=== PATIENT | female | born 1975 | race Caucasian/White ===

== ENCOUNTER 2016-05-30 12:03 | Emergency (ER) | payer OTHER ==
--- NOTE | 2016-05-30 12:13 | EDPHY ---
H & P Time Seen by Provider: 05/30/16 12:09 HPI/ROS: CHIEF COMPLAINT: Anaphylaxis, difficulty breathing. HISTORY OF PRESENT ILLNESS: The patient is a 40-year-old female with a severe coconut allergy and asthma presenting with an acute allergic reaction that began 40 minutes ago after accidental coconut ingestion. She is complaining of difficulty breathing and throat swelling. This is similar to her previous reactions. She self-administered .3ml IM Epinephrine IM. She is having difficulty speaking due to the throat swelling. She has been intubated before for allergic reactions. She denies vomiting, diarrhea, or other complaints. REVIEW OF SYSTEMS: A complete 10-point review of systems was performed and is negative except for those items mentioned in the HPI. Past Medical/Surgical History: Asthma, severe anaphylactic reactions. Social History: Nonsmoker. Smoking Status: Never smoked Physical Exam: General Appearance: Alert, in respiratory distress, hoarse voice Eyes: Pupils equal and round, no periorbital swelling ENT, Mouth: Mucous membranes moist, no oral swelling Neck: Normal inspection, no stridor Respiratory: Tachypnea Decreased air exchange throughout Cardiovascular: Regular tachycardia Neurological: A&O, nonfocal exam Skin: Erythema on the anterior chest wall Extremities: No swelling Psychiatric: calm, mood normal Constitutional: Initial Vital Signs O2 Sat (%) 99 05/30/16 12:10 O2 Delivery Mode Room Air O2 (L/minute) 3 Allergies/Adverse Reactions: droperidol [From Inapsine] Allergy (Severe, Verified 05/30/16 12:22) Cephalosporins Allergy (Verified 05/30/16 12:22) coconut oil Allergy (Verified 05/30/16 12:22) latex [Latex] Allergy (Verified 05/30/16 12:22) Penicillins Allergy (Verified 05/30/16 12:22) Home Medications: Medication Instructions Recorded ALBUTEROL SULFATE 09/26/10 ARIPIPRAZOLE [Abilify 30mg] mg PO DAILY 09/26/10 BENZTROPINE MESYLATE mg PO 09/26/10 Mometasone/Formoterol [Dulera 100 13 gm IH 09/26/10 Mcg/5 Mcg Inhaler] Ciprofloxacin 08/09/15 Pradaxa 08/09/15 traZODONE 08/10/15 Azithromycin [Zithromax] 250 mg PO DAILY #6 tab 03/24/16 predniSONE 1 tab PO DAILY #15 tab 03/24/16 predniSONE 40 mg PO DAILY #8 tab 05/30/16 Medical Decision Making ED Course/Re-evaluation: I saw this patient on her arrival. She was in severe respiratory distress with laryngeal edema and bronchospasm. A 2nd dose of epinephrine 0.3 mL IM given. After my initial examination the patient was moved into room 2 and on-call anesthesia was paged for anticipated difficult airway. An IV was established. 125mg IV Solu-Medrol, 25mg IV Benadryl administered. 3ml IH Albuterol administered. I stayed at the pt's bedside until she felt like she was improving. 1220: Consulted with Dr. Morris, anesthesia, for possible airway assistance. 1230: Reassessed patient. She is feeling much better. She is breathing easier and is able to speak more clearly. On exam she has decreased breath sounds throughout with scattered expiratory wheezes. A 2nd albuterol neb was given. 1430: Reassessed patient. She is completely symptom-free at this time. Chest is clear to auscultation. She does not need a refill of her Epi pens as she tells me she has plenty. She would like to go home. I answered all of her questions. She was given return precautions and prescriptions prior to being discharged. This patient utilized 35 minutes of critical care time exclusive of unbundled procedures. Differential Diagnosis: Differential diagnosis includes though it is not limited to laryngeal edema, bronchospasm, hypotension, angioedema. - Data Points Medications Given: Discontinued Medications Albuterol (Proventil Neb) 3 ml IH EDNOW ONE Stop: 05/30/16 12:15 Last Admin: 05/30/16 12:30 Dose: 3 ml Albuterol (Proventil Neb) 3 ml IH EDNOW ONE Stop: 05/30/16 12:24 Last Admin: 05/30/16 12:31 Dose: 3 ml Diphenhydramine HCl (Benadryl Injection) 25 mg IVP EDNOW ONE Stop: 05/30/16 12:15 Last Admin: 05/30/16 12:32 Dose: 25 mg Epinephrine HCl (Epinephrine) 0.3 mg IM EDNOW ONE Stop: 05/30/16 12:24 Last Admin: 05/30/16 12:20 Dose: 0.3 mg Sodium Chloride (Ns) 1,000 mls @ 0 mls/hr IV ONCE ONE PRN Reason: Wide Open Stop: 05/30/16 12:23 Last Admin: 05/30/16 12:32 Dose: Not Given Sodium Chloride (Ns) 1,000 mls @ 3,000 mls/hr IV ONCE ONE Stop: 05/30/16 12:42 Last Admin: 05/30/16 12:32 Dose: 1,000 mls Methylprednisolone Sodium Succinate (Solu-Medrol) 125 mg IVP EDNOW ONE Stop: 05/30/16 12:15 Last Admin: 05/30/16 12:32 Dose: 125 mg Ranitidine HCl (Zantac) 50 mg IVP EDNOW ONE Stop: 05/30/16 12:24 Last Admin: 05/30/16 12:32 Dose: 50 mg Departure - Departure Disposition: Home, Routine, Self-Care Clinical Impression: Anaphylaxis Qualifiers: Qualifier Code: (T78.2XXA) Anaphylactic shock, unspecified, initial encounter Condition: Good Instructions: Anaphylaxis (ED) Additional Instructions: Take Claritin in the morning and Benadryl at night for the next 3 days. Additionally, take prednisone as instructed. Return to the emergency department if you experience serious worsening of condition. Referrals: Patient,NotPresent [Unknown] - As per Instructions Prescriptions: predniSONE 40 mg PO DAILY #8 tab Report Scribed for: Racquel Roblero Report Scribed by: Travon Davis Date of Report: 05/30/16 Time of Report: 12:13 Physician Review and Approval Statement: 05/30/16 12:14 Portions of this note were transcribed by a director of medical staff services. I personally performed a history, physical exam, medical decision making, and confirmed accuracy of information the transcribed note.
[2016-05-30] MEDS ORDERED: methylPREDNISolone SOD SUCC 125 MG/2 ML VIAL IVP ONE (12:14)
[2016-05-30] MEDS ORDERED: ALBUTEROL 3 ML DEYVIAL IH ONE ×2 (12:14→12:23)
[2016-05-30] MEDS ORDERED: NS 1,000 ML IV ONE ×2 (12:22→12:23)
[2016-05-30] MEDS ORDERED: RANITIDINE 50 MG/2 ML VIAL IVP ONE (12:23)
[2016-05-30 12:28] VITALS: TEMP 97.9
[2016-05-30 14:47] VITALS: BP 106/71; PULSE 113; RESP 18; O2SAT 93
== END 2016-05-30 14:47 | disposition home or self-care (01) ==
LOC: EDUNIT#
DX: T78.2XXA Anaphylactic shock, unspecified, initial encounter (principal); J45.909 Unspecified asthma, uncomplicated; Z91.040 Latex allergy status
CPT/HCPCS: 96374; J2780

== ENCOUNTER 2016-06-30 16:49 | Emergency (ER) | payer OTHER ==
[2016-06-30 17:00] VITALS: TEMP 97.7
[2016-06-30] MEDS ORDERED: NS 1,000 ML IV ONE ×2 (17:09)
[2016-06-30] MEDS ORDERED: ONDANSETRON 4 MG/2 ML VIAL IVP ONE (17:09)
--- NOTE | 2016-06-30 17:12 | EDPHY ---
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 3 of her children and a co-teacher are currently out with a similar gastrointestinal illness. After 4:00 a.m. she had multiple episodes of vomiting and diarrhea, no blood or melena, symptoms are severe. Not associated with abdominal pain or urinary symptoms. Worse with trying to eat or drink anything. REVIEW OF SYSTEMS: Eye: no change in vision ENT: no sore throat Cardiac: no chest pain or syncope Pulmonary: no cough or SOB Abdomen: HPI Musculoskeletal: no back pain Skin: no rash Neuro: Mild headache not thunderclap in onset or worst of life Constitutional: no fever : no urinary symptoms, no vaginal bleeding, denies A comprehensive 10 point review of systems is otherwise negative aside from elements mentioned in the history of present illness. PAST MEDICAL HISTORY: Includes factor 5 Leiden and lupus anticoagulant, bipolar , well-controlled asthma. 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 Eyes: No scleral icterus. ENT, Mouth: Dry mucous membranes Respiratory: Normal respiratory effort, breath sounds equal, lungs are clear to auscultation. Cardiovascular: Regular rate and rhythm. Gastrointestinal: Abdomen is soft and non tender. No rebound or guarding and not distended. Neurological: Alert and oriented x3. Normally conversant. Face symmetric, normal movement and sensation in all extremities. Skin: Warm and dry, no rashes. Musculoskeletal: No peripheral edema and no joint swelling. Psychiatric: Not agitated. Emergency Department course/MDM: Discussed symptomatic treatment, IV normal saline 2 L and 4 mg IV Zofran. Discussed no diagnostic or laboratory studies unless she does not improve, patient is in agreement. Roberts better after treatment, stable for discharge. Likely viral gastroenteritis from contact with sick persons. Smoking Status: Never smoked Constitutional: Initial Vital Signs Temperature (C) 36.5 C 06/30/16 16:57 Heart Rate 98 06/30/16 16:57 Respiratory Rate 16 06/30/16 16:57 Blood Pressure 118/79 06/30/16 16:57 O2 Sat (%) 98 06/30/16 16:57 O2 Delivery Mode Room Air Allergies/Adverse Reactions: droperidol [From Inapsine] Allergy (Severe, Verified 05/30/16 12:22) Cephalosporins Allergy (Verified 05/30/16 12:22) coconut oil Allergy (Verified 05/30/16 12:22) latex [Latex] Allergy (Verified 05/30/16 12:22) Penicillins Allergy (Verified 05/30/16 12:22) Home Medications: Medication Instructions Recorded ALBUTEROL SULFATE 09/26/10 ARIPIPRAZOLE [Abilify 30mg] mg PO DAILY 09/26/10 BENZTROPINE MESYLATE mg PO 09/26/10 Mometasone/Formoterol [Dulera 100 13 gm IH 09/26/10 Mcg/5 Mcg Inhaler] Ciprofloxacin 08/09/15 Pradaxa 08/09/15 traZODONE 08/10/15 Azithromycin [Zithromax] 250 mg PO DAILY #6 tab 03/24/16 predniSONE 1 tab PO DAILY #15 tab 03/24/16 predniSONE 40 mg PO DAILY #8 tab 05/30/16 Medical Decision Making Differential Diagnosis: Differential diagnosis considered for nausea and vomiting including but not limited to gastroenteritis, gastritis, appendicitis, and medication side effect. - Data Points Medications Given: Discontinued Medications Sodium Chloride (Ns) 1,000 mls @ 0 mls/hr IV ONCE ONE PRN Reason: Wide Open Stop: 06/30/16 17:10 Last Admin: 06/30/16 17:15 Dose: 1,000 mls Sodium Chloride (Ns) 1,000 mls @ 0 mls/hr IV ONCE ONE PRN Reason: Wide Open Stop: 06/30/16 17:10 Last Admin: 06/30/16 17:16 Dose: 1,000 mls Ondansetron HCl (Zofran) 4 mg IVP EDNOW ONE Stop: 06/30/16 17:10 Last Admin: 06/30/16 17:15 Dose: 4 mg Ondansetron HCl (Zofran Odt 4 Mg Prepack#2) 1 btl TAKEHOME EDNOW ONE Stop: 06/30/16 17:21 Last Admin: 06/30/16 19:50 Dose: 1 btl Departure - Departure Disposition: Home, Routine, Self-Care Clinical Impression: Vomiting and diarrhea, Dehydration Condition: Good Instructions: Ondansetron (By mouth), Dehydration (ED) Referrals: [facility] ,. [Edm Groups for Call Sched] - As per Instructions
[2016-06-30] MEDS ORDERED: ONDANSETRON 4MG PREPACK#2 BTL TAKEHOME ONE ×2 (17:20→19:49)
[2016-06-30 19:46] VITALS: BP 121/75; PULSE 84; RESP 17; O2SAT 92
== END 2016-06-30 19:56 | disposition home or self-care (01) ==
DX: R11.10 Vomiting, unspecified (principal); R19.7 Diarrhea, unspecified; E86.0 Dehydration; J45.909 Unspecified asthma, uncomplicated; Z91.040 Latex allergy status
CPT/HCPCS: 96374; J2405

== ENCOUNTER 2016-07-06 15:19 | Emergency (ER) | payer MEDICAID, OTHER ==
[2016-07-06] MEDS ORDERED: ALBUTEROL 3 ML DEYVIAL IH ONE (15:36)
--- NOTE | 2016-07-06 16:07 | EDPHY ---
H & P Time Seen by Provider: 07/06/16 15:26 HPI/ROS: CHIEF COMPLAINT: Dyspnea, possible allergic reaction HISTORY OF PRESENT ILLNESS: The patient presents to the ED via paramedics after a possible allergic reaction. The patient reportedly has an allergy to coconut and accidentally consume some prior to arrival. She developed symptoms of wheezing and severe dyspnea. She self administered an epinephrine pen. In route the patient received Benadryl as well as an additional IM dose of epinephrine. The patient reports that her last episode of an allergic reaction was approximately 1 month ago. The patient has required intubation for anaphylaxis in the past. The patient denies additional acute complaints. She currently is feeling much better. REVIEW OF SYSTEMS: A comprehensive 10 point review of systems is otherwise negative aside from elements mentioned in the history of present illness. Source: Patient Exam Limitations: No limitations - Medical/Surgical History Hx Asthma: Yes Hx Chronic Respiratory Disease: No Hx Diabetes: No Hx Cardiac Disease: No Hx Renal Disease: No Hx Cirrhosis: No Hx Alcoholism: Yes Hx HIV/AIDS: No Hx Splenectomy or Spleen Trauma: No Other PMH: asthma, factor 5, lupus, bi polar, - Social History Smoking Status: Never smoked - Physical Exam Exam: General Appearance: Alert, slightly anxious, mildly tachypneic Eyes: Pupils equal and round no pallor or injection ENT, Mouth: Mucous membranes moist Respiratory: Tachypnea, no expiratory wheezing noted, lungs clear to auscultation Cardiovascular: Regular rate and rhythm Gastrointestinal: Abdomen is soft and nontender, no masses, bowel sounds normal Neurological: A&O, normal motor function, normal sensory exam, normal cranial nerves Skin: No rash Musculoskeletal: Neck is supple nontender Extremities: symmetrical, full range of motion Constitutional: Initial Vital Signs Temperature (C) 36.3 C 07/06/16 15:31 Heart Rate 124 H 07/06/16 15:31 Respiratory Rate 22 H 07/06/16 15:31 Blood Pressure 138/101 H 07/06/16 15:31 O2 Sat (%) 122 H 07/06/16 15:31 O2 Delivery Mode Room Air Allergies/Adverse Reactions: droperidol [From Inapsine] Allergy (Severe, Verified 05/30/16 12:22) Cephalosporins Allergy (Verified 05/30/16 12:22) coconut oil Allergy (Verified 05/30/16 12:22) latex [Latex] Allergy (Verified 05/30/16 12:22) Penicillins Allergy (Verified 05/30/16 12:22) COCONUT Allergy (Uncoded 07/06/16 15:28) Home Medications: Medication Instructions Recorded ALBUTEROL SULFATE 09/26/10 ARIPIPRAZOLE [Abilify 30mg] mg PO DAILY 09/26/10 BENZTROPINE MESYLATE mg PO 09/26/10 Mometasone/Formoterol [Dulera 100 13 gm IH 09/26/10 Mcg/5 Mcg Inhaler] Ciprofloxacin 08/09/15 Pradaxa 08/09/15 traZODONE 08/10/15 Azithromycin [Zithromax] 250 mg PO DAILY #6 tab 03/24/16 predniSONE 1 tab PO DAILY #15 tab 03/24/16 predniSONE 40 mg PO DAILY #8 tab 05/30/16 Medical Decision Making ED Course/Re-evaluation: The patient presents to the ED with reported severe dyspnea now resolved after 2 doses of epinephrine and Benadryl. I evaluated the patient initially upon her arrival in found no evidence of or pharyngeal swelling, no expiratory wheezing, no tachycardia or tachypnea. The patient was placed on a teletypesetter monitor. She was kept in the resuscitation room given her history of severe anaphylaxis requiring intubation. I reviewed the patient's past medical records including in the ED visit in May where the patient appeared to developed some acute airway compromise while in the ED which was self-limited. Patient was re-evaluated by myself at 4:50 p.m. and is in no acute distress. Her respiratory symptoms have entirely resolved. She is comfortable being discharged home. She will be given a prescription for a new epinephrine pen. She understands to return to the ED for any recurrent allergic symptoms. Differential Diagnosis: Differential diagnosis considered includes urticaria, anaphylaxis, angioedema, anxiety reaction - Data Points Medications Given: Discontinued Medications Albuterol (Proventil Neb) 3 ml EDNOW ONE Stop: 07/06/16 15:37 Last Admin: 07/06/16 15:53 Dose: 3 ml Departure - Departure Disposition: Home, Routine, Self-Care Clinical Impression: Allergic reaction Condition: Good Instructions: Allergies (ED) Additional Instructions: 1. Please take Benadryl as needed. 2. Please use epinephrine pen in the event of a severe reaction. 3. Please return to the ED for any recurrent allergic reaction symptoms. Referrals: [facility] ,. [Edm Groups for Call Sched] - As per Instructions
[2016-07-06 16:27] VITALS: O2SAT 94
[2016-07-06 17:07] VITALS: BP 108/75; PULSE 108; RESP 14; TEMP 98.2
[2016-07-06] MEDS ORDERED: ALBUTEROL 3 ML DEYVIAL ONE (20:00)
== END 2016-07-06 17:06 | disposition home or self-care (01) ==
LOC: EDUNIT#
DX: T78.40XA Allergy, unspecified, initial encounter (principal); J45.909 Unspecified asthma, uncomplicated; Z91.040 Latex allergy status